=== PATIENT | male | born 1990 | race Caucasian/White ===

== ENCOUNTER 2019-07-15 12:09 | Emergency (ER) | payer MEDICAID ==
[~2019-07-15] VITALS: Ht 182.9 cm; Wt 81.6 kg
[2019-07-15 12:09] VITALS: BP_SYST 120
--- NOTE | 2019-07-15 12:09 | NUR ---
BROUGHT IN BY [facility], PLACED IN BED #1 AND TRIAGED. REPORT GIVEN TO HARLEEN
--- NOTE | 2019-07-15 12:10 | NUR ---
ER Dr. Matos at bedside examining patient.
[2019-07-15] MEDS ORDERED: NACL 0.9% 1,000 ML IV ONE (12:15)
--- NOTE | 2019-07-15 12:15 | NUR ---
PT AAOx4 presents to ED via ALS s/p unresponsive in room at [facility]. Given narcan nasally en route. Pt reports to taking heroin prior to arrival. Denies pain at this time. No other injuries/complaints per pt/noted. Will continue to monitor.
--- NOTE | 2019-07-15 12:54 | NUR ---
Ratna, girlfriend, at bedside. Pt laying comfortably in bed with no signs of distress.
[2019-07-15] MEDS ORDERED: ONDANSETRON HCL 4 MG/2 ML VIAL IVP ONE (13:00)
--- NOTE | 2019-07-15 13:00 | NUR ---
Pt actively vomiting. Dr. Matos notified. Zofran to be ordered.
--- NOTE | 2019-07-15 13:06 | NUR ---
4mg Zofran administered. Pt tolerated well. No adverse reactions noted.
[2019-07-15 14:46] LABS: BASOPHILS % (AUTO) 0.2 % (0.0-2.0); EOSINOPHILS % (AUTO) 0.3 % (0.0-4.0); HEMATOCRIT 40.7 % (36-54); HEMOGLOBIN 13.5 g/dL (14.0-18.0); LYMPHOCYTES # (AUTO) 1.5 K/uL (1.0-5.5); LYMPHOCYTES % (AUTO) 10.6 % (20.5-51.5); MEAN CORPUSCULAR HEMOGLOBIN 31 pg (27-31); MEAN CORPUSCULAR HGB CONC 33 % (32-36); MEAN CORPUSCULAR VOLUME 92 fL (79.0-98.0); MONOCYTES # (AUTO) 1.1 K/uL (0.0-1.0); MONOCYTES % (AUTO) 7.4 % (1.7-9.3); NEUTROPHILS # (AUTO) 11.6 K/uL (1.8-7.7); NEUTROPHILS % (AUTO) 81.5 % (40.0-70.0); PLATELET COUNT (AUTO) 181 K/uL (130-430); RED BLOOD CELL COUNT(AUTO) 4.44 MIL/uL (4.2-6.2); RED CELL DISTRIBUTION WIDTH 12.6 % (9.0-15.0); WHITE BLOOD COUNT (AUTO) 14.3 K/uL (4.8-10.8)
[2019-07-15 15:15] LABS: ANION GAP 4 (5-15); CALCIUM 8.6 mg/dL (8.4-11.0); CHLORIDE 106 mmol/L (98-107); CREATININE 0.91 mg/dL (0.55-1.30); GLUCOSE 112 mg/dL (70-99); SODIUM SERUM 137 mmol/L (136-145); UREA NITROGEN, BLOOD 14 mg/dL (8-21)
[2019-07-15 15:19] LABS: BILIRUBIN,URINE NEGATIVE (NEGATIVE); BLOOD, URINE NEGATIVE (NEGATIVE); CLARITY/URINE CLEAR (CLEAR); COLOR,URINE YELLOW (YELLOW); GLUCOSE,URINE 1+ (NEGATIVE); KETONES,URINE NEGATIVE (NEGATIVE); LEUKOCYTE ESTERASE ,URINE NEGATIVE (NEGATIVE); NITRITE, URINE NEGATIVE (NEGATIVE); PH,URINE 5.5 (5.0-8.0); PROTEIN URINE NEGATIVE (NEGATIVE); UROBILINOGEN,URINE 0.2 (0.2-1.0)
[2019-07-15 15:20] LABS: ALANINE AMINOTRANSFERASE 22 U/L (12-78); ASPARTATE AMINOTRANSFERASE 15 U/L (10-37); TOTAL BILIRUBIN 0.8 mg/dL (0.0-1.0)
[2019-07-15 15:22] LABS: GFR AFRICAN AMERICAN 128 mL/min (>90)
[2019-07-15 15:23] LABS: ALCOHOL, BLOOD < 3 mg/dL (<10)
[2019-07-15 16:07] LABS: INR 1.1 (0.80-1.20); PROTHROMBIN TIME 11.1 SECS (9.5-12.5)
--- NOTE | 2019-07-15 16:35 | NUR ---
Patient given written and verbal discharge instructions and verbalizes understanding. ER MD Ruiz, Mally, Destiny discussed with patient the results and treatment provided. Patient in stable condition. ID arm band removed. IV catheter removed intact and dressing applied, no active bleeding. Rx of given. Patient educated on pain management and to follow up with PMD. Pain Scale 0. Opportunity for questions provided and answered. Medication side effect fact sheet provided.
[2019-07-15 16:36] VITALS: BP_SYST 124
[2019-07-16 01:50] LABS: BARBITURATE, URINE NEGATIVE (NEG <=200); OPIATE, URINE POSITIVE (NEG <=100); URINE AMPHETAMINE POSITIVE (NEG <=500)
[2019-07-16 01:51] LABS: BENZODIAZEPINE, URINE NEGATIVE (NEG <=150); CANNABINOID, URINE NEGATIVE (NEG <=50); COCAINE, URINE NEGATIVE (NEG <=150); METHAMPHETAMINES SCREEN,URINE NEGATIVE (NEG <=500); PHENCYCLIDINE SCREEN,URINE NEGATIVE (NEG <=25); UR TRICYCLIC ANTIDEPRESSANTS NEGATIVE (NEG <=300); URINE METHADONE NEGATIVE (NEG <=200); URINE OXYCODONE SCREEN NEGATIVE (NEG <=100); URINE PROPOXYPHENE SCREEN NEGATIVE (NEG <=300)
== END 2019-07-15 16:35 | disposition home or self-care (01) ==
LOC: SED 12:09
DX: T40.7X1A Poisoning by cannabis (derivatives), accidental (unintentional), initial encounter (principal); E11.9 Type 2 diabetes mellitus without complications; Z86.73 Personal history of transient ischemic attack (TIA), and cerebral infarction without residual deficits; Y92.89 Other specified places as the place of occurrence of the external cause
CPT/HCPCS: 36415; 71045; 80048; 80053; 80307; 81003; 84484; 85025; 85610; 85730; 93005; 96374; 99284; G0482; J2405; J7030

== ENCOUNTER 2021-12-17 12:52 | Emergency (ER) | payer MEDICAID, SELFPAY ==
[~2021-12-17] VITALS: Ht 182.9 cm; Wt 83.9 kg
[2021-12-17 13:00] VITALS: BP_SYST 118
--- NOTE | 2021-12-17 13:00 | NUR ---
Blood test request by animal park code enforcement officer signed and witnessed.
--- NOTE | 2021-12-17 13:00 | NUR ---
Pt to [facility] for evaluation.
--- NOTE | 2021-12-17 13:05 | NUR ---
Pt AAO and BIB law enforcement for medical clearance. Pt denies having any current complaint or prior medical history.
--- NOTE | 2021-12-17 13:46 | NUR ---
Dr. Murphy to [facility] to assess.
--- NOTE | 2021-12-17 14:38 | NUR ---
Written and verbal consent obtained from patient Tigre Ann for blood alcohol, name and verified by patient. Disinfected patient's skin with iodine that did not contain alcohol or other volatile organic compound. Collected the blood from the subject named by venipuncture, in the presence of Officer Masha. Used a sterile, dry hypodermic needle and dry vacuum blood collection. Two dry vacuum blood collection was supplied by the officer named above. Withdrew a specimen of blood from right arm of the subject named above. Inverted both blood tubes several times to ensure that the preservative and anticoagulant were thoroughly mixed in the blood specimen. I initialed both blood tube labels for identification. The labeled blood tubes were handed directly to the Officer named above. The blood tubes stopper remained in place while I had possession of the blood tubes. The Officer placed tubes into envelope and sealed it in my presence. Envelope initialed by myself and Officer named above. Patient tolerated well, bandage applied, and bleeding controlled.
[2021-12-17 14:50] VITALS: BP_SYST 118
--- NOTE | 2021-12-17 14:50 | NUR ---
Patient given written and verbal discharge instructions and verbalizes understanding. Dr. Katherine BARRAGAN MD discussed with patient the results and treatment provided. Patient in stable condition. ID arm band removed. Patient educated on pain management and to follow up with PMD. Pain Scale 0/10. Opportunity for questions provided and answered.
== END 2021-12-17 14:50 | disposition home or self-care (01) ==
LOC: SED 12:52
DX: Z04.1 Encounter for examination and observation following transport accident (principal); V89.2XXA Person injured in unspecified motor-vehicle accident, traffic, initial encounter; Y93.89 Activity, other specified; Y92.488 Other paved roadways as the place of occurrence of the external cause; Y99.8 Other external cause status
CPT/HCPCS: 99283